=== PATIENT | male | born 1980 | race Caucasian/White ===

== ENCOUNTER 2020-08-16 06:56 | Emergency (ER) | payer SELFPAY | END 2020-08-16 07:01 | disposition left against medical advice (07) | LOC: ERS 06:56 | DX: Z53.21 Procedure and treatment not carried out due to patient leaving prior to being seen by health care provider (principal) ==

== ENCOUNTER 2022-01-08 05:15 | Emergency (ER) | payer SELFPAY | END 2022-01-08 07:46 | disposition home or self-care (01) | LOC: ERS 05:15 | DX: R56.9 Unspecified convulsions (principal); F17.200 Nicotine dependence, unspecified, uncomplicated | CPT/HCPCS: 70450 ==